=== PATIENT | female | born 1960 | race Caucasian/White ===

== ENCOUNTER 2023-02-02 12:37 | Day surgery (SDC) | payer BC, SELFPAY ==
--- NOTE | 2023-02-02 | FL_ITS ---
The [address] [address] Patient Name: TERE BOJORQUEZ MRN: [id number] date: 1960 Sex: F Assigned Patient Location: MRI Current Patient Location: MRI Accession/Order Number: [id number] Exam Date: 02/02/2023 13:33 Report Date: 02/02/2023 15:28 At the request of: CONCHA JOSEPH Procedure: FL arthrogram hip RT EXAMINATION: FL arthrogram hip RT HISTORY: Acute right hip pain M25.551 COMPARISON: No relevant comparison available. TECHNIQUE: An arthrogram was performed under fluoroscopic guidance using non-ionic contrast material in the usual sterile manner after obtaining informed consent. Standard level fluoroscopic mode of operation utilized. FINDINGS: JOINT: Right hip NEEDLE: 25 gauge, 5.5 spinal needle. MEDICATION: 2cc buffered 1% lidocaine for subcutaneous anesthesia 2cc Omnipaque-240 iodinated contrast to visualize the joint space 40 mg Depo-Medrol and one mL, 3 mL's of 0.5% bupivacaine, 3 cc of sterile saline injected into the joint space. TECHNIQUE: Anterior approach with prior localization of the femoral artery. A single stick was successful in gaining access to the joint space. CLINICAL: 6 out of 10 pain before the procedure. 4 out of 10 pain following the procedure COMPLICATIONS: None. BONES: Mild degenerative changes with marginal osteophyte formation LOOSE BODIES: None. OTHER: Negative. FL/FL arthrogram hip RT IMPRESSION: Technically successful right hip arthrogram Electronically authenticated by: ARTI LYMAN Date: 02/02/2023 15:28
--- NOTE | 2023-02-02 12:51 | MR_ITS ---
The [address] [address] Patient Name: TERE BOJORQUEZ MRN: [facility]:[id number] date: 1960 Sex: F Assigned Patient Location: MRI Current Patient Location: MRI Accession/Order Number: [id number] Exam Date: 02/02/2023 14:04 Report Date: 02/02/2023 16:32 At the request of: CONCHA JOSEPH Procedure: MR hip RT wo con EXAM: MR hip RT wo con REASON FOR EXAM: Right hip pain. TECHNIQUE: Multiplanar, multisequence imaging of the right hip was performed following the uneventful intra-articular administration of contrast. See separate arthrogram report for procedure description. COMPARISON: No recent relevant imaging. FINDINGS: Study mildly degraded by motion. On small [id number] imaging of the right hip, the right femur is well seated within the acetabulum. No fracture or AVN identified. There is diffuse intermediate grade chondrosis of the femoral acetabular cartilage. No definite high-grade chondrosis identified. Diminutive appearance of the anterior and anterior superior labrum suggests labral degeneration. Marginal osteophytes are present. No intra-articular body. There is tendinosis involving the right gluteal insertional tendons. Small amount of fluid is present in the trochanteric bursa, asymmetric the contralateral side, favoring to represent bursitis. Mild proximal right hamstring tendinosis with low-grade interstitial partial tearing of the biceps femoris origin. The remaining right hip regional musculature is without muscle strain or tendon tear. On large [id number] imaging, mild loss of normal intervertebral disc space height and signal at the L5-S1 level, incompletely characterized. The visualized sacroiliac joints are congruent. The pubic symphysis is congruent. The left femur is well seated within the acetabulum without fracture or AVN. No joint effusion. Proximal left biceps femoris tendinosis and low-grade interstitial partial tearing. Limited evaluation the pelvic viscera is unremarkable. MR/MR hip RT wo con IMPRESSION: 1. Moderate right hip osteoarthritis with anterior and anterior superior labral degeneration. 2. Tendinosis of the right gluteal insertional tendons with mild bursitis. 3. Bilateral proximal biceps femoris tendinosis and low-grade interstitial partial tearing. 4. Mild loss of normal intervertebral disc space height and signal the L5-S1 level. Electronically authenticated by: ISHMAEL MTZ Date: 02/02/2023 16:32
[2023-02-02] MEDS: TRIAMCINOLONE ACETONIDE 40 MG/ML VIAL INJ (13:45)
[2023-02-02] MEDS: LIDOCAINE HCL 15 ML, SODIUM BICARBONATE 2 MEQ INJ (13:45)
== END 2023-02-02 14:00 | disposition home or self-care (01) ==
LOC: MRI 12:40
PROVIDERS: Radiology Diagnostic Radiology; PCP Family Medicine; Visit Provider Personal Emergency Response Attendant
DX: M25.551 Pain in right hip (principal); M16.11 Unilateral primary osteoarthritis, right hip; M71.9 Bursopathy, unspecified; S73.191A Other sprain of right hip, initial encounter
CPT/HCPCS: 27093; 73525; 73721; 73722; 77002; A9575; Q9967